=== PATIENT | female | born 1975 | race Caucasian/White ===

== ENCOUNTER 2018-01-23 16:11 | Emergency (ER) | payer OTHER, MEDICAID, SELFPAY ==
[2018-01-23 16:12] VITALS: BP 146/87; PULSE 82; RESP 16; TEMP 36.9; O2SAT 99; BMI 30.9
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
[2018-01-23] MEDS: Naproxen 250 MG Tablet 500 MG PO (16:54)
== END 2018-01-23 16:57 | disposition home or self-care (01) ==
PROVIDERS: Emergency Provider Emergency Medicine
DX: S39.012A Strain of muscle, fascia and tendon of lower back, initial encounter (principal); V43.62XA Car passenger injured in collision with other type car in traffic accident, initial encounter; Y93.9 Activity, unspecified; Y92.511 Restaurant or cafe as the place of occurrence of the external cause; Y99.9 Unspecified external cause status; F17.210 Nicotine dependence, cigarettes, uncomplicated
CPT/HCPCS: 99282